=== PATIENT | female | born 1970 | race Caucasian/White ===

== ENCOUNTER 2016-06-11 05:38 | Day surgery (SDC) | payer OTHER ==
[~2016-06-11] VITALS: Ht 165.1 cm; Wt 92.0 kg
[~2016-06-11 05:38] MED LIST: OMEPRAZOLE40 M1 PO
[2016-06-11 06:23] VITALS: BP 122/72
[2016-06-11 12:36] VITALS: BP 120/64
[2016-06-11 15:25] VITALS: BP 125/70
[2016-06-11 20:39] VITALS: BP 131/72
[2016-06-11 23:39] VITALS: BP 129/63
[2016-06-12 04:13] VITALS: BP 125/66
[2016-06-12 07:16] LABS: EOSINOPHIL (%) 0.2 % (0-5); HEMATOCRIT 36.6 % (36.0-46.0); IMMATURE GRANULOCYTE (%) 0.5 % (0.0-0.7); IMMATURE GRANULOCYTE COUNT 0.1 K/uL; INSTRUMENT ABS NEUTROPHIL CT 6.7 K/uL; LYMPHOCYTE COUNT 1.9 K/uL (1.0-2.8); MCH 27.7 PG (29.0-34.0); MCHC 32.2 G/DL (30.0-36.0); MCV 85.9 FL (83-99); MEAN PLAT.VOLUME 9.7 uM^3 (9.5-12.4); MONOCYTE (%) 9.1 % (3-12); MONOCYTE COUNT 0.9 K/uL (0-0.8); NEUTROPHIL (%) 70.3 % (45-76); NEUTROPHIL COUNT 6.7 K/uL (1.8-6.4); PLATELET COUNT 264 K/uL (156-360); RBC DIS.WIDTH-CV 14.3 % (11.8-14.6); RBC DIS.WIDTH-SD 44.7 % (39-53); RED BLOOD COUNT 4.26 M/uL (3.80-5.20); WHITE BLOOD COUNT 9.5 K/uL (4.1-10.2)
[2016-06-12 07:37] LABS: ANION GAP 7 MEQ/L (2-14); CHLORIDE 110 MEQ/L (99-109); GFR ESTIMATE (CALCULATED) > 59 mL/min/; GLUCOSE 109 mg/dL (70-99); POTASSIUM 3.9 MEQ/L (3.7-5.4); SAMPLE HEMOLYSIS CHECK 0; SAMPLE ICTERIC CHECK 0; SAMPLE LIPEMIA CHECK 0; SODIUM 141 MEQ/L (136-147); UREA NITROGEN (BUN) 6 mg/dL (9-23)
[2016-06-12 08:22] VITALS: BP 135/81
[2016-06-12 12:05] VITALS: BP 128/38
== END 2016-06-12 13:01 | disposition home or self-care (01) ==
LOC: SDC 05:38 → 2SOUTH 10:20 → 2EASTP 10:20 → SDC 12:23 → 2EASTP 06-12 13:01
PROVIDERS: Obstetrics & Gynecology Gynecology
DX: N92.0 Excessive and frequent menstruation with regular cycle (principal); D25.9 Leiomyoma of uterus, unspecified; N80.0 Endometriosis of uterus; N83.292 Other ovarian cyst, left side; K66.0 Peritoneal adhesions (postprocedural) (postinfection); Z97.5 Presence of (intrauterine) contraceptive device; E66.09 Other obesity due to excess calories; Z68.33 Body mass index [BMI] 33.0-33.9, adult; K21.9 Gastro-esophageal reflux disease without esophagitis; Z83.3 Family history of diabetes mellitus; Z83.42 Family history of familial hypercholesterolemia; Z81.8 Family history of other mental and behavioral disorders; Z82.49 Family history of ischemic heart disease and other diseases of the circulatory system; Z80.3 Family history of malignant neoplasm of breast; Z88.1 Allergy status to other antibiotic agents
CPT/HCPCS: 80048; 85025; 87086; 88302; 88307; G0378; J0131; J0330; J0690; J1100; J1170; J1644; J1885; J2250; J2270; J2405; J2710; J3010; J7120